=== PATIENT | male | born 1975 | race Caucasian/White ===

== ENCOUNTER 2019-09-05 18:52 | Emergency (ER) | payer SELFPAY ==
[~2019-09-05] VITALS: Ht 175.3 cm; Wt 98.4 kg
[2019-09-05 18:55] VITALS: BP 132/78
[2019-09-05] MEDS ORDERED: ACETAMINOPHEN EXTRA STRENGTH 500 MG TAB PO ONE (19:05)
--- NOTE | 2019-09-05 19:07 | NUR ---
PATIENT AMBULATED TO BED 8.
--- NOTE | 2019-09-05 19:12 | NUR ---
PT [facility]IB [facility]; REFERRAL FROM CLINIC FOR PNEUMONIA. C/O WORSENING PRODUCTIVE COUGH THE LAST 3 WEEKS WITH GREEN SPUTUM. STATES IT IS DIFFICULT TO BREATHE WITH THE CONGESTION; DENIES TAKING ANY MEDICATION TO HELP WITH THE COUGH OR CONGESTION. PRESENTS WITH A FEVER. GIVEN 1G TYLENOL. FLU SWAB DONE. LUNG SOUNDS COURSE AND DIMINISHED BILATERALLY. DENIES ANY PAST MEDICAL HX. VSS.
--- NOTE | 2019-09-05 19:15 | NUR ---
XRAY IN ROOM WITH PATIENT.
--- NOTE | 2019-09-05 20:00 | NUR ---
Dr. Godwin examining patient.
[2019-09-05] MEDS ORDERED: KETOROLAC 30 MG/ML VIAL IVP ONE (20:05)
[2019-09-05] MEDS ORDERED: NACL 0.9% 1,000 ML IV ONE (20:05)
--- NOTE | 2019-09-05 20:23 | NUR ---
IV PLACED; PT TOLERATED. GAVE TORADOL AND STARTED IVF BOLUS NS.
[2019-09-05 21:14] VITALS: BP 132/78
--- NOTE | 2019-09-05 21:14 | NUR ---
Patient discharged with v/s stable. Written and verbal after care instructions given and explained. Patient alert, oriented and verbalized understanding of instructions. Ambulatory with steady gait. All questions addressed prior to discharge. ID band removed. Patient advised to follow up with PMD. Rx of PREDNISONE, TAMIFLU, MOTRIN given. Patient educated on indication of medication including possible reaction and side effects. Opportunity to ask questions provided and answered.
== END 2019-09-05 21:14 | disposition home or self-care (01) ==
LOC: MED 18:52
DX: J10.1 Influenza due to other identified influenza virus with other respiratory manifestations (principal); R05 Cough
CPT/HCPCS: 71045; 87804; 96374; 99284; J1885; J7030; Q0092